=== PATIENT | male | born 1960 | race Caucasian/White ===

== ENCOUNTER → 2017-07-07 | Outpatient (CLI) | payer MEDICARE ==
--- NOTE | 2017-07-07 18:01 | Diagnostic Imaging Report ---
PROCEDURE:X-RAY LEFT FOOT, COMPLETE COMPARISON:None. 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 Deformities of the third and fourth metatarsal heads and may be related to prior trauma or infection. There are small radiopaque fragments adjacent to the distal aspect of the second metatarsal. Partially visualized kelly and screw device within the right distal tibia. No acute fracture or dislocation. The bones are diffusely demineralized. CONCLUSION: Small radiopaque fragments adjacent to the distal aspect of the second metatarsal. These probably represent bone fragments. Comparison with any prior radiographs may be helpful. Otherwise no definite radiopaque object within the soft tissues. Dictated by: Orlin Figueroa M.D. on 07/07/2017 at 18:03 Electronically approved by: Orlin Figueroa M.D. on 07/07/2017 at 18:03
== END ==
LOC: RAD 16:30
PROVIDERS: ATTEND Family Medicine
DX: Z09 Encounter for follow-up examination after completed treatment for conditions other than malignant neoplasm (principal)

== ENCOUNTER → 2018-02-06 | Outpatient (CLI) | payer MEDICARE ==
--- NOTE | 2018-02-06 11:32 | Diagnostic Imaging Report ---
TECHNIQUE: Magnetic resonance imaging of the RIGHT foot was performed WITHOUT injected contrast. 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 Status post indication of the second and third rays at the level of the distal metaphysis of the metatarsal bones. Subchondral collapse of the head of the fourth metatarsal bone, may be indicative of remote avascular necrosis. Third and fourth toe hammertoe configurations. Mild bone marrow edema within the head of the fourth metatarsal bone. 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 Trace effusion of the fourth metatarsophalangeal joint. Small volume of fluid at the third metatarsophalangeal pseudarthrosis. Soft Tissues: Focal soft tissue defect at the plantar aspect of the foot underlying the residual base of the first metatarsal bone. Adjacent heterogeneous signal may reflect a combination of granulation and scar tissue. Regional soft tissue edema, no discrete drainable fluid collection. IMPRESSION: 1. No evidence of acute/active osteomyelitis. 2. Postsurgical changes. 3. Multifocal arthropathy. 4. Plantar soft tissue ulcer without associated drainable soft tissue abscess. Signed by: Dr. Abdiaziz Hernandez D.O., M.M.M. on 02/06/2018 11:29 AM
== END ==
LOC: MRI 08:45
PROVIDERS: ATTEND Podiatrist Foot & Ankle Surgery
DX: E11.621 Type 2 diabetes mellitus with foot ulcer (principal)